=== PATIENT | female | born 2000 | race Caucasian/White ===

== ENCOUNTER 2021-05-18 23:59 | Inpatient (IN) ==
[2021-05-19] MEDS ORDERED: ONDANSETRON 4 MG/2 ML VIAL IV PRN (00:48)
[2021-05-19] MEDS ORDERED: BUTORPHANOL 2 MG/ML VIAL IV PRN (00:48)
[2021-05-19] MEDS ORDERED: MEPERIDINE 50 MG/1 ML VIAL IV PRN (00:48)
[2021-05-19] MEDS ORDERED: NIFEdipine 10 MG CAPSULE PO ONE (00:48)
[2021-05-19] MEDS ORDERED: LACTATED RINGERS 1,000 ML IV SCH ×2 (01:00→13:30)
[2021-05-19 01:17] LABS: Basophils % 0.2 % (0.0-0.8); Eosinophils # 0.1 10*3/uL (0.0-0.87); Eosinophils % 0.3 % (0.00-10.9); Hemoglobin 11.7 GM/DL (12.0-16.0); Immature Granulocytes % 0.9 %; Immature Granulocytes Absolute 0.14 #; Lymphocytes # 2.9 10*3/uL (1.4-4.0); Lymphocytes % 17.5 % (21.3-54.2); Mean Corpuscular HGB Conc 33.4 GM/DL (32-36); Mean Corpuscular Volume 87.5 FL (87-102); Mean Platelet Volume 11.8 FL (9.6-12.0); Monocytes % 7.1 % (1.7-12.7); Platelet Count 246 T/CUMM (130-400); Red Cell Distribution Width 12.1 % (9.3-17.3); White Blood Count 16.5 T/CUMM (4-12)
[2021-05-19 01:29] LABS: Bilirubin,Direct < 0.050 MG/DL (0.0-0.20); Uric Acid 6.7 MG/DL (2.6-6.0)
[2021-05-19 01:30] LABS: Alanine Aminotransferase 17 U/L (13-56); Albumin 2.7 G/DL (3.4-5.0); Alkaline Phosphatase 168 U/L (45-117); Aspartate Amino Transferase 17 U/L (0-37); Bilirubin,Total < 0.39 MG/DL (0.20-1.00); Blood Urea Nitrogen 10 MG/DL (7-18); Calcium 9.9 MG/DL (8.5-10.1); Carbon Dioxide 22 MMOL/L (21-32); Estimated Glom Filtration Rate 149 ML/MIN; Glucose 82 MG/DL (74-106); Osmolality,Calculated 270.8 MOS/KG (273-304); Potassium 3.7 MMOL/L (3.5-5.1); Sodium 137 MMOL/L (136-145); Total Protein 6.9 G/DL (6.4-8.2)
[2021-05-19 01:38] LABS: Amorphous Crystals,Urine Occasional /HPF (Few); Bacteria,Urine Occasional /HPF (Few); Bilirubin,Urine Negative (Negative); Blood, Urine Negative (Negative); Glucose,Urine (UA) Negative (Negative); Ketones,Urine Negative (Negative); Mucus,Urine Occasional /LPF (Occasional); Nitrite,Urine Negative (Negative); Protein,Urine 100 MG/DL; Squamous Epithelial Cell,Urine Occasional /HPF (0-10); Urine Appearance Slightly Hazy (Clear); Urine Color Yellow (Yellow); Urine Specific Gravity 1.011 (1.001-1.035); Urine Urobilinogen < 2.0 EU/DL (0.2-1.0)
[2021-05-19 01:46] LABS: INR 0.9; PT Patient Result 10.2 SECS (10.5-12.0); Partial Thromboplastin Time 22.8 SECS (23.8-32.1)
[2021-05-19] MEDS ORDERED: OXYTOCIN/LR 20 UNIT/1,000 ML BAG IV SCH (10:30)
[2021-05-19] MEDS ORDERED: diphenhydrAMINE 50 MG/1 ML VIAL IV PRN ×2 (13:29)
[2021-05-19] MEDS ORDERED: NALOXONE 0.4 MG/ML VIAL IV PRN (13:29)
[2021-05-19] MEDS ORDERED: FAMOTIDINE 20 MG/2 ML VIAL IV ONE (13:29)
[2021-05-19] MEDS ORDERED: ePHEDrine 50 MG/ML VIAL IV PRN (13:29)
[2021-05-19] MEDS ORDERED: LACTATED RINGERS 1,000 ML IV ONE (13:29)
[2021-05-19] MEDS ORDERED: CITRIC ACID/SODIUM CITRATE 30 ML UDCUP PO ONE (13:29)
[2021-05-19] MEDS ORDERED: fentaNYL 2 MCG/ROPIV 0.2% EPID 100 ML EPIDURAL SCH (13:30)
[2021-05-19 15:36] LABS: Bilirubin,Urine Negative (Negative); Blood, Urine Negative (Negative); Glucose,Urine (UA) Negative (Negative); Ketones,Urine 20 mg/dL (Negative); Mucus,Urine Occasional /LPF (Occasional); Nitrite,Urine Negative (Negative); Protein,Urine 100 MG/DL; Squamous Epithelial Cell,Urine Occasional /HPF (0-10); Urine Appearance CLEAR (Clear); Urine Color Yellow (Yellow); Urine Specific Gravity 1.011 (1.001-1.035); Urine Urobilinogen < 2.0 EU/DL (0.2-1.0)
[2021-05-19] MEDS ORDERED: TRANEXAMIC ACID 1,000 MG/10 ML VIAL ONE (17:20)
[2021-05-19] MEDS ORDERED: OXYTOCIN/LR 0 UNIT/0 ML BAG IV ONE (17:20)
[2021-05-19] MEDS ORDERED: SODIUM CHLORIDE 0.9% 0 ML IV ONE (17:20)
[2021-05-19] MEDS ORDERED: miSOPROStoL 200 MCG TABLET ONE (17:20)
[2021-05-19] MEDS ORDERED: METHYLERGONOVINE 0.2 MG/1 ML AMP ONE (17:21)
[2021-05-19] MEDS ORDERED: CARBOPROST TROMETHAMINE 250 MCG/ML AMP IM ONE (17:21)
[2021-05-19 18:14] LABS: Cord Arterial Blood HCO3 19.8 MMOL/L
[2021-05-19 18:16] LABS: Cord Venous Blood PCO2 42.9 MMHG; Cord Venous Blood PO2 29.3
[2021-05-19] MEDS ORDERED: OXYTOCIN/LR 20 UNIT/1,000 ML BAG IV ONE ×2 (19:30→21:43)
[2021-05-19] MEDS ORDERED: BISACODYL 10 MG SUPP RECTAL PRN (21:43)
[2021-05-19] MEDS ORDERED: oxyCODONE/ACETAMINOPHEN 5-325 MG TABLET PO PRN ×2 (21:43)
[2021-05-19] MEDS ORDERED: ACETAMINOPHEN 325 MG TABLET PO PRN (21:43)
[2021-05-19] MEDS ORDERED: MEASLES/MUMPS/RUBELLA VACCINE 0.5 ML VIAL SUBCUT ONE (21:43)
[2021-05-19] MEDS ORDERED: BENZOCAINE 20%/MENTHOL 0.5% SPRAY 56 GM CAN TOP PRN (21:43)
[2021-05-19] MEDS ORDERED: LANOLIN 50% CREAM 0.3 OZ TUBE TOP PRN (21:43)
[2021-05-19] MEDS ORDERED: RHO(D) IMMUNE GLOBULIN 300 MCG SYRINGE IM ONE (21:43)
[2021-05-19] MEDS ORDERED: WITCH HAZEL PADS 100/JAR TOP PRN (21:43)
[2021-05-19] MEDS ORDERED: DIPH/TET/ACEL PERT BOOSTER VACCINE 0.5 ML VIAL IM ONE (21:43)
[2021-05-19] MEDS ORDERED: HYDROCORTISONE 2.5% RECTAL CREAM 30 GM TUBE TOP PRN (21:43)
[2021-05-19] MEDS: DOCUSATE SODIUM 100 MG CAPSULE PO SCH (22:30)
[2021-05-19] MEDS: IBUPROFEN 800 MG TABLET PO PRN (22:33)
[2021-05-20 06:06] LABS: Basophils % 0.2 % (0.0-0.8); Eosinophils % 0.1 % (0.00-10.9); Hematocrit 26.5 VOL% (35.7-47.0); Immature Granulocytes % 0.6 %; Lymphocytes # 1.9 10*3/uL (1.4-4.0); Lymphocytes % 11.4 % (21.3-54.2); Mean Corpuscular HGB Conc 34.3 GM/DL (32-36); Mean Corpuscular Volume 87.7 FL (87-102); Mean Platelet Volume 12.1 FL (9.6-12.0); Monocytes % 7.1 % (1.7-12.7); Neutrophils % 80.6 % (38.7-73.9); Red Cell Distribution Width 12.2 % (9.3-17.3); White Blood Count 17.1 T/CUMM (4-12)
[2021-05-20 06:19] LABS: Hemoglobin 9.1 GM/DL (12.0-16.0); Platelet Count 170 T/CUMM (130-400); Red Blood Count 3.02 MC/CUMM (3.8-5.5)
[2021-05-20] MEDS: FERROUS SULFATE 325 MG TABLET PO SCH (09:28)
[2021-05-20] MEDS: DOCUSATE SODIUM 100 MG CAPSULE PO SCH ×2 (09:28→20:37)
[2021-05-20] MEDS: IBUPROFEN 800 MG TABLET PO PRN ×2 (09:30→18:55)
[2021-05-21] MEDS: IBUPROFEN 800 MG TABLET PO PRN (06:03)
[2021-05-21] MEDS: FERROUS SULFATE 325 MG TABLET PO SCH (08:40)
[2021-05-21] MEDS: DOCUSATE SODIUM 100 MG CAPSULE PO SCH (08:41)
[2021-05-21] MEDS ORDERED: DIPH/TET/ACEL PERT BOOSTER VACCINE 0.5 ML VIAL IM ONE (10:58)
[2021-05-21 12:13] VITALS: BP 140/90
== END 2021-05-21 12:00 | disposition home or self-care (01) | DRG 807 ==
LOC: N.LD 23:59 → N.LDOUT 05-19 14:23 → EDSTATUS 05-19 14:23 → N.OB 05-19 21:44
PROVIDERS: ADMIT Obstetrics & Gynecology; ATTEND Obstetrics & Gynecology